=== PATIENT | female | born 1995 | race Caucasian/White ===

== ENCOUNTER → 2017-04-28 00:22 | Emergency (ER) | payer BC ==
[2017-04-28 01:32] LABS: Hematocrit 36 % (35-47); Hemoglobin 11.6 g/dl (12.0-16.0); Mean Corpuscular HGB Conc 33 g/dl (31-36); Mean Corpuscular Hemoglobin 30 pg (27-31); Mean Corpuscular Volume 91 fL (80-97); Mean Platelet Volume 10 um3 (7.4-10.4); Red Cell Distribution Width 13 % (10.5-15)
[2017-04-28 01:46] LABS: Albumin 4.5 g/dL (3.2-5.2); BUN/Creatinine Ratio 18.9 (8-20); Calcium 8.6 mg/dL (8.6-10.3); EGFR African American 128.7 (>60); EGFR Non-African American 100.1 (>60); Globulin 2.8 g/dL (2-4); Total Bilirubin 0.3 mg/dL (0.2-1.0); Total Protein 7.3 g/dL (6.4-8.9)
[2017-04-28 01:48] LABS: Potassium 3.8 mmol/L (3.5-5.0)
--- NOTE | 2017-04-28 06:28 | ED ---
Rikki Florez SooYoung, scribed for BereniceCj silva on 04/28/17 at 0054 . Substance Abuse/Use - HPI Summary HPI Summary: LEVEL 5 CAVEAT - ETOH INTOXICATION, UNRESPONSIVE A 22 y/o F BIBRasheeda presents to ED for ETOH intoxication. - History Of Current Complaint Chief Complaint: EDSubstanceAbuse Stated Complaint: ETOH Time Seen by Provider: 04/28/17 00:47 Hx Obtained From: EMS PMH/Surg Hx/FS Hx/Imm Hx Previously Healthy: No - LEVEL 5 CAVEAT - ETOH INTOXICATION Infectious Disease History: Unable to Obtain/Confirm Infectious Disease History: Denies: Traveled Outside the [place] in Last 30 Days - Family History Family History: LEVEL 5 CAVEAT - ETOH INTOXICATION - Social History Occupation: Unemployed - OTHER Alcohol Use: Unk Hx Substance Use: No Substance Use Type: Reports: None Smoking Status (MU): Unknown if Ever Smoked Review of Systems - ROS Summary Review of Systems Summary: LEVEL 5 CAVEAT - ETOH INTOXICATION All Other Systems Reviewed And Are Negative: No Physical Exam Triage Information Reviewed: Yes Vital Signs On Initial Exam: Initial Vitals Temp Pulse Resp BP Pulse Ox 97.3 F 92 17 110/59 98 04/28/17 00:35 04/28/17 00:35 04/28/17 00:35 04/28/17 00:35 04/28/17 00:35 Vital Signs Reviewed: Yes Appearance: Positive: Well-Appearing, No Pain Distress Skin: Positive: Warm, Skin Color Reflects Adequate Perfusion, Dry Head/Face: Positive: Normal Head/Face Inspection Eyes: Positive: EOMI, LEONELA ENT: Positive: Normal ENT inspection Neck: Positive: Supple, Nontender Respiratory/Lung Sounds: Positive: Clear to Auscultation, Breath Sounds Present Cardiovascular: Positive: RRR, Pulses are Symmetrical in both Upper and Lower Extremities Abdomen Description: Positive: Nontender, Soft Bowel Sounds: Positive: Present Musculoskeletal: Positive: Normal, Strength/ROM Intact Neurological: Positive: Normal, Sensory/Motor Intact, Alert, Oriented to Person Place, Time Diagnostics - Vital Signs Vital Signs Temp Pulse Resp BP Pulse Ox 04/28/17 00:35 97.3 F 92 17 110/59 98 - Laboratory Result Diagrams: 04/28/17 01:24 04/28/17 01:24 Lab Statement: Any lab studies that have been ordered have been reviewed, and results considered in the medical decision making process. Course/Dx - Diagnoses Provider Diagnoses: Alcohol intoxication Discharge - Discharge Plan Condition: Stable Disposition: HOME Patient Education Materials: Abuse of Alcohol (ED) Referrals: No Primary Care Phys,NOPCP [Primary Care Provider] - The documentation as recorded by the Rikki estevez SooYoung accurately reflects the service I personally performed and the decisions made by Anupama jacinto Emmanuel.
[2017-04-28 09:37] VITALS: BP 87/50
== END | disposition home or self-care (01) ==
LOC: ED 00:22
DX: F10.129 Alcohol abuse with intoxication, unspecified (principal)
CPT/HCPCS: 36415; 80053; 80320; 85025; 99282; G0480

== ENCOUNTER 2018-10-10 16:42 | Emergency (ER) | payer BC, OTHER ==
[2018-10-10 17:07] VITALS: BP 136/83
[2018-10-10] MEDS ORDERED: Lidocaine 1%* 5 ML VIAL INJ ONE (17:13)
[2018-10-10] MEDS ORDERED: Tetan/Diph/Pertus SYR(Tdap)* 0.5 ML SYR(BOOSTRIX) use SYR IM ONE (17:14)
--- NOTE | 2018-10-10 17:17 | UC ---
Skin Complaint HPI - HPI Summary HPI Summary: 23-year-old woman 23-year-old woman comes in with a chief complaint of a dog bite to the right thigh which occurred approximately 40 minutes prior to arrival to clinic. The dog is a known dog and it's known that has all his immunizations. She was in the room with the dog and she started running and the dog bit her in the leg through her pants. She does not know she is up-to- date on her tetanus shot. Bleeding is controlled by direct pressure. No other injuries noted. - History of Current Complaint Chief Complaint: UCBiteInjury Time Seen by Provider: 10/10/18 17:02 Stated Complaint: DOG BITE Hx Last Menstrual Period: 1 wek ago Pain Intensity: 6 - Allergy/Home Medications Allergies/Adverse Reactions: Allergies Allergy/AdvReac Type Severity Reaction Status Date / Time No Known Allergies Allergy Verified 10/10/18 17:07 PMH/Surg Hx/FS Hx/Imm Hx Previously Healthy: Yes - Surgical History Surgical History: None - Family History Known Family History: Positive: Non-Contributory - Social History Alcohol Use: Occasionally Substance Use Type: None Smoking Status (MU): Unknown if Ever Smoked Review of Systems All Other Systems Reviewed And Are Negative: Yes Constitutional: Positive: Negative Skin: Positive: Other - SEE HPI Eyes: Positive: Negative ENT: Positive: Negative Respiratory: Positive: Negative Cardiovascular: Positive: Negative Gastrointestinal: Positive: Negative Motor: Positive: Negative Neurovascular: Positive: Negative Musculoskeletal: Positive: Negative Neurological: Positive: Negative Psychological: Positive: Negative Is Patient Immunocompromised?: No Physical Exam Triage Information Reviewed: Yes Appearance: Well-Appearing, No Pain Distress, Well-Nourished Vital Signs: Initial Vital Signs Temp 99.4 F 10/10/18 17:00 Pulse 78 10/10/18 17:00 Resp 16 10/10/18 17:00 BP 136/83 10/10/18 17:00 Pulse Ox 100 10/10/18 17:00 Vital Signs Reviewed: Yes Eye Exam: Normal Eyes: Positive: Conjunctiva Clear Neck exam: Normal Neck: Positive: Supple Respiratory: Positive: No respiratory distress Musculoskeletal Exam: Normal Musculoskeletal: Positive: Strength Intact, ROM Intact Neurological Exam: Normal Neurological: Positive: Alert, Muscle Tone Normal Psychological Exam: Normal Psychological: Positive: Age Appropriate Behavior Skin: Positive: Other - On the patient's right lateral mid thigh she has an area of ecchymosis approximately 6 cm in diameter. There are several partial thickness lacerations and one full thickness laceration. This full-thickness laceration is 2 cm long and it's gaping 8 mm at its widest. Laceration Repair - Laceration Repair 1 Procedure Summary: The partial-thickness lacerations were not sutured they were cleaned she will keep antibiotic ointment on them. The 2 cm full-thickness laceration was gaping at 8 mm at its widest point. I placed 3 sutures on the 2 cm open laceration leaving the edges slightly open to allow for drainage given that it's an animal bite. Description: Irregular Laceration Size After Repair: Length (cm) - 2CM Modified For Repair: No Type Injection: Local Anesthesia Used: 1.0% Lido Cleansing Completed Via Routine Prep: Yes Closure Material: Sutures Closure Method: Single Layer Suture Of: Skin - #3 Suture Type: Prolene - 4-0 Course/Dx - Course Course Of Treatment: The open full-thickness laceration was closed loosely with sutures. Patient will be keeping antibiotic ointment on the partial-thickness and full-thickness laceration. She was given her T tap here in clinic. We'll have her on Augmentin. Follow-up with [facility] or return here if the sutures out in 8-10 days later know if anything is worsening signs of infection for her to get reevaluated right away. - Diagnoses Provider Diagnosis: Dog bite of right thigh Discharge - Sign-Out/Discharge Documenting (check all that apply): Patient Departure All imaging exams completed and their final reports reviewed: No Studies - Discharge Plan Condition: Stable Disposition: HOME Prescriptions: Amoxicillin/Clavulanate TAB* [Augmentin TAB 875*] 875 mg PO BID #14 tab Mupirocin 1 applic TOPICAL BID #22 gm Patient Education Materials: Animal Bite (ED) Referrals: [facility] [Provider Group] Additional Instructions: FOLLOW UP WITH [facility]. SUTURES OUT IN 8-10 DAYS. CLEAN THE WOUND 1-2 TIMES PER DAY AND APPLY ANTIBIOTIC OINTMENT. YOU WERE GIVEN A TDAP IMMUNIZATION TODAY. GET RECHECKED SOONER WITH ANY WORSENING OF YOUR CONDITION; SIGNS OF INFECTION, FEVER, YOU FEEL ILL OR QUESTIONS OR CONCERNS. - Billing Disposition and Condition Condition: STABLE Disposition: Home
[2018-10-10] MEDS ORDERED: Ibuprofen TAB* 600 MG PO ONE (17:48)
== END 2018-10-10 18:05 | disposition home or self-care (01) ==
LOC: UCEAST 16:42
DX: S71.151A Open bite, right thigh, initial encounter (principal); W54.0XXA Bitten by dog, initial encounter; Y92.9 Unspecified place or not applicable; Z23 Encounter for immunization
CPT/HCPCS: 12001; 12002; 90471; 90715; 99212; A9270-GY; G0463